=== PATIENT | male | born 1935 | race Caucasian/White ===

== ENCOUNTER 2016-08-12 13:50 | Day surgery (SDC) | payer MEDICARE, OTHER ==
[~2016-08-12 13:50] MED LIST: Lactated Ringers 1,000 ML IV SCH; Lidocaine 1%/Sod Bicarbonate in NS 8.4% 1 ML Syringe IV PRN; Sodium Chloride 0.9% 10 ML Syringe FLUSH PRN
[2016-08-12] MEDS ORDERED: Propofol 200 MG/20 ML SDV ONE ×2 (14:16→15:35)
[2016-08-12] MEDS ORDERED: Lidocaine 1% 2 ML SDV ONE (14:17)
[2016-08-12] MEDS ORDERED: fentaNYL 250 MCG/5 ML SDV ONE (14:18)
--- NOTE | 2016-08-12 14:30 | PCM.PREANE ---
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 Respiratory: Reports: no symptoms Cardiovascular: Reports: no symptoms GI: Reports: no symptoms Other: Reports: none - PHYSICAL ASSESSMENT HR: 99 O2 Sat by Pulse Oximetry: 96 RR: 18 BP: 144/84 Temp: 98.0 C Height: 1.75 m Weight: 80.739 kg ASA Class: 2 Mental Status: alert & oriented x3 - ALLERGIES Allergies/Adverse Reactions: Allergies Allergy/AdvReac Type Severity Reaction Status Date / Time No Known Allergies Allergy Verified 06/10/15 16:37 PreAnesthesia Questionnaire HEENT History: Reports: Hard of hearing, Impaired vision Cardiovascular History: Reports: Hypertension Gastrointestinal History: Reports: GERD - SUBSTANCE USE Smoking Status *Q: Former Smoker Tobacco Use Within Last Twelve Months: No Days Per Week of Alcohol Use: 2 Number of Drinks Per Day: 1 Total Drinks Per Week: 2 Recreational Drug Use History: No - HOME MEDS Home Medications: Home Meds Aspirin [Ecotrin] 81 mg PO DAILY 08/12/16 [History] Atenolol 50 mg PO DAILY 08/12/16 [History] LORazepam 1 mg PO DAILY 08/12/16 [History] Lisinopril 10 mg PO DAILY 08/12/16 [History] Meclizine [Antivert] 12.5 mg PO DAILY 08/12/16 [History] Multivit-Min/FA/Lycopen/Lutein [Centrum Silver Men Tablet] 1 tab PO DAILY [History] Omeprazole 20 mg PO DAILY 08/12/16 [History] - CURRENT (IN HOUSE) MEDS Current Meds: Current Medications Lactated Ringer's (Ringers, Lactated) 1,000 mls @ 125 mls/hr IV ASDIRECTED DARYL Stop: 08/12/16 23:00 Lidocaine/Sodium Bicarbonate (Buffered Lidocaine 1% In Ns 8.4%) 0.25 ml IV ONETIME PRN PRN Reason: Prior to IV Start Stop: 08/12/16 18:00 Sodium Chloride (Saline Flush) 10 ml FLUSH ASDIRECTED PRN PRN Reason: Keep Vein Open Stop: 08/12/16 18:00 Discontinued Medications Bupivacaine HCl (Marcaine 0.5%) Confirm Administered Dose 30 ml .ROUTE .STK-MED ONE Stop: 08/12/16 13:44 Lidocaine HCl (Xylocaine-Mpf 1%) Confirm Administered Dose 30 ml .ROUTE .STK- MED ONE Stop: 08/12/16 13:44
--- NOTE | 2016-08-12 14:40 | PCM.PREANE ---
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 Respiratory: Reports: no symptoms Cardiovascular: Reports: no symptoms GI: Reports: no symptoms Other: Reports: none - PHYSICAL ASSESSMENT HR: 99 O2 Sat by Pulse Oximetry: 96 RR: 18 BP: 144/84 Temp: 98.0 C Vital Signs: Last Vital Signs Temp 98.0 C H 08/12/16 14:30 Pulse 99 08/12/16 14:30 Resp 18 08/12/16 14:30 BP 144/84 H 08/12/16 14:30 Pulse Ox 96 08/12/16 14:30 Height: 1.75 m Weight: 80.739 kg ASA Class: 2 Mental Status: alert & oriented x3 Airway Class: Mallampati = 2 Dentition: Reports: normal dentition Thyro-Mental Finger Breadths: 3 Mouth Opening Finger Breadths: 3 ROM/Head Extension: full Respiratory Status: lungs clear to auscultation bilaterally Cardiovascular Status: regular rate & rhythm, normal S1, S2, no murmur, blood pressure WNL - ALLERGIES Allergies/Adverse Reactions: Allergies Allergy/AdvReac Type Severity Reaction Status Date / Time No Known Allergies Allergy Verified 06/10/15 16:37 - ANESTHESIA PLAN Preop Beta Leigh: No Beta-Leigh Last Dose Date: 08/11/16 Beta-Leigh Last Dose Time: 20:15 Anesthesia Type Planned: MAC - ACKNOWLEDGEMENTS Pt an appropriate candidate for the planned anesthesia: Yes Alternatives and risks of anesthesia discussed w pt/guardian: Yes Pt/Guardian understands and agree with anesthesia plan: Yes PreAnesthesia Questionnaire HEENT History: Reports: Hard of hearing, Impaired vision Cardiovascular History: Reports: Hypertension Respiratory History: Reports: None Gastrointestinal History: Reports: GERD Genitourinary History: Reports: Other (see below) (hx prostate CA) Musculoskeletal History: Reports: None Neurological History: Reports: Vertigo Psychiatric History: Reports: None Endocrine/Metabolic History: Reports: None Hematologic History: Reports: None Immunologic History: Reports: None Oncologic (Cancer) History: Reports: Prostate - Past Surgical History GI Surgical History: Reports: Colonoscopy, Hernia, inguinal Male Surgical History: Reports: Other (see below) (prostate) Endocrine Surgical History: Reports: None Neurological Surgical History: Reports: None Musculoskeletal Surgical History: Reports: None, Other (see below) (hand surgery without comp) Oncologic Surgical History: Reports: None Dermatological Surgical History: Reports: None - SUBSTANCE USE Smoking Status *Q: Former Smoker Tobacco Use Within Last Twelve Months: No Days Per Week of Alcohol Use: 2 Number of Drinks Per Day: 1 Total Drinks Per Week: 2 Recreational Drug Use History: No - HOME MEDS Home Medications: Home Meds Aspirin [Ecotrin] 81 mg PO DAILY 08/12/16 [History] Atenolol 50 mg PO DAILY 08/12/16 [History] LORazepam 1 mg PO DAILY 08/12/16 [History] Lisinopril 10 mg PO DAILY 08/12/16 [History] Meclizine [Antivert] 12.5 mg PO DAILY 08/12/16 [History] Multivit-Min/FA/Lycopen/Lutein [Centrum Silver Men Tablet] 1 tab PO DAILY [History] Omeprazole 20 mg PO DAILY 08/12/16 [History] - CURRENT (IN HOUSE) MEDS Current Meds: Current Medications Lactated Ringer's (Ringers, Lactated) 1,000 mls @ 125 mls/hr IV ASDIRECTED DARYL Stop: 08/12/16 23:00 Lidocaine/Sodium Bicarbonate (Buffered Lidocaine 1% In Ns 8.4%) 0.25 ml IV ONETIME PRN PRN Reason: Prior to IV Start Stop: 08/12/16 18:00 Sodium Chloride (Saline Flush) 10 ml FLUSH ASDIRECTED PRN PRN Reason: Keep Vein Open Stop: 08/12/16 18:00 Discontinued Medications Bupivacaine HCl (Marcaine 0.5%) Confirm Administered Dose 30 ml .ROUTE .STK-MED ONE Stop: 08/12/16 13:44 Lidocaine HCl (Xylocaine-Mpf 1%) Confirm Administered Dose 30 ml .ROUTE .STK- MED ONE Stop: 08/12/16 13:44
[2016-08-12] MEDS ORDERED: ceFAZolin 1 GM Vial ONE ×2 (15:05)
[2016-08-12] MEDS: Bupivacaine 0.5% 30 ML SDV ONE ×2 (15:15→15:31)
[2016-08-12] MEDS: Lidocaine 1% 30 ML SDV ONE ×2 (15:15→15:31)
[2016-08-12] MEDS ORDERED: Midazolam 1 MG/ML 2 ML SDV ONE (15:19)
[2016-08-12] MEDS ORDERED: Phenylephrine/Normal Saline 100 MCG/ML 10 ML Syringe ONE (16:02)
[2016-08-12] MEDS ORDERED: Ondansetron 4 MG/2 ML SDV ONE (16:03)
--- NOTE | 2016-08-12 16:34 | PCM.OPNOTE ---
- General Post-Op/Procedure Note Date of Surgery/Procedure: 08/12/16 Operative Procedure(s): rt inguinal hernia repair with mesh Pre Op Diagnosis: incacerated rt inguinal hernia Post-Op Diagnosis: Same Anesthesia Technique: MAC Primary Surgeon: Ihsan Garcia Complications: None Condition: Good
--- NOTE | 2016-08-12 16:34 | PCM48HPAN ---
Post Anesthesia Note - EVALUATION WITHIN 48HRS OF ANESTHETIC Vital Signs in Normal Range: Yes Patient Participated in Evaluation: Yes Respiratory Function Stable: Yes Airway Patent: Yes Cardiovascular Function Stable: Yes Hydration Status Stable: Yes Pain Control Satisfactory: Yes Nausea and Vomiting Control Satisfactory: Yes Mental Status Recovered: Yes
[2016-08-12 17:24] VITALS: BP 127/77
--- NOTE | 2016-08-15 08:22 | OR ---
DATE OF OPERATION: 08/12/2016 SURGEON: Ihsan Garcia MD PREOPERATIVE DIAGNOSIS: Incarcerated right inguinal hernia. POSTOPERATIVE DIAGNOSIS: Incarcerated right inguinal hernia. OPERATION PERFORMED: Repair with mesh done under IV sedation. FINDINGS: A large incarcerated direct inguinal hernia with loss of the floor of the inguinal canal and increased diameter of the internal ring. DESCRIPTION OF PROCEDURE: The patient was taken to the operating room, placed in a supine position, connected to monitoring equipment, given IV sedation. Antibiotics were given. The inguinal region was clipped and prepped with DuraPrep, draped off in a sterile fashion. A 0.5% Marcaine/Xylocaine infiltrated in the skin, deeper tissues as needed. Transverse incision was made, carried down by sharp dissection to the external oblique fascia which was opened from internal to external ring after flooding the undersurface with anesthetic. The direct inguinal hernia was reduced and the sac was then dissected from the under surface of the cord and the opening exposed. Cord lipoma was taken from the internal ring and the floor was then reconstituted with an interrupted 2-0 Ethibond suture, suturing the shelving edge of the inguinal ligament to the internal oblique fascia. This narrowed the internal ring to admit the index finger. This was followed by a mesh that was placed on the pubic tubercle and sutured to the shelving edge of the inguinal ligament with a running 2-0 Vicryl suture. Tails were then wrapped around the internal ring and the medial side of the mesh was then sutured to the internal oblique fascia with interrupted 2-0 Vicryl suture. The tails were crossed and secured in place with a 2-0 Vicryl suture so as to make another internal ring which admit the index finger. The cord was allowed to fall back onto this repair and the external oblique fascia reconstituted with a running 3-0 Vicryl suture. Julien's fascia brought together with interrupted 3-0 Vicryl suture, and the skin with a subdermal 4-0 Dexon suture. Steri-Strips and sterile dressing placed. The patient tolerated the procedure, sent to recovery room in a stable condition. ANESTHESIA: ESTIMATED BLOOD LOSS: MMODAL /[id number]
== END 2016-08-12 17:16 | disposition home or self-care (01) ==
LOC: JD.SDS 13:50
PROVIDERS: ATTEND Surgery
PROC: 0YU50JZ Supplement Right Inguinal Region with Synthetic Substitute, Open Approach (ICD-10-PCS; principal; 2016-08-12)
DX: K40.30 Unilateral inguinal hernia, with obstruction, without gangrene, not specified as recurrent (principal); E78.5 Hyperlipidemia, unspecified; I10 Essential (primary) hypertension; K21.9 Gastro-esophageal reflux disease without esophagitis; Z85.46 Personal history of malignant neoplasm of prostate; Z98.890 Other specified postprocedural states; Z79.82 Long term (current) use of aspirin; Z79.899 Other long term (current) drug therapy; Z87.891 Personal history of nicotine dependence
CPT/HCPCS: 49507; C1781; J0690; J2250; J2405; J7120; 00830; 87641; J2704; J3010

== ENCOUNTER 2023-09-20 20:31 | Emergency (ER) | payer MEDICARE, OTHER ==
[2023-09-20 21:27] LABS: BASOPHILS PERCENT AUTO 0.5 % (0.0-1.0); EOSINOPHILS ABSOLUTE AUTO 0.2 K/mm3 (0.0-0.4); EOSINOPHILS PERCENT AUTO 2.1 % (0.0-6.0); HEMATOCRIT 45.4 % (42.0-52.0); HEMOGLOBIN 14.5 gm/dl (14.0-18.0); IMMATURE GRAN ABSOLUTE AUTO 0.01 K/mm3 (0.00-0.05); IMMATURE GRAN PERCENT AUTO 0.1 % (0.0-0.4); LYMPHOCYTES ABSOLUTE AUTO 1.2 K/mm3 (1.0-4.8); LYMPHOCYTES PERCENT AUTO 14.5 % (24.0-44.0); MEAN CORPUSCULAR HGB CONC 31.9 g/dl (32.0-36.0); MEAN CORPUSCULAR VOLUME 97.2 fl (83.0-99.0); MONOCYTES ABSOLUTE AUTO 0.7 K/mm3 (0.0-0.8); MONOCYTES PERCENT AUTO 8.8 % (0.0-8.0); NEUTROPHILS ABSOLUTE AUTO 5.9 K/mm3 (1.8-7.7); PLATELET COUNT,PLT 164 K/mm3 (150-400); RED BLOOD CELL COUNT 4.67 M/mm3 (4.52-5.90); WHITE BLOOD CELL COUNT,WBC 7.95 K/mm3 (3.9-11.3)
[2023-09-20 21:56] LABS: A/G RATIO 1.1 (1-2); ALBUMIN 3.2 g/dl (3.4-5.0); BILIRUBIN TOTAL 0.5 mg/dL (0.2-1.0); BUN/CREATININE RATIO 14.6 (14-18); CALCIUM 9.2 mg/dL (8.5-10.1); CREATININE 1.3 mg/dL (0.7-1.3); EST CRCL DRUG DOSING (CG) 37.27 mL/min; PROTEIN TOTAL,TP 6.2 g/dl (6.4-8.2); TSH 1.714 uIU/mL (0.358-3.74)
[2023-09-21] MEDS: Furosemide 20 MG/2 ML VIAL IVPUSH ONE (00:05)
[2023-09-21 01:07] LABS: APPEARANCE,URINE CLEAR (Clear); BILIRUBIN,URINE NEGATIVE (Negative); COLOR,URINE YELLOW (Yellow); GLUCOSE,URINE NEGATIVE (Negative); KETONES,URINE NEGATIVE (Negative); LEUKOCYTE ESTERASE,URINE NEGATIVE (Negative); NITRITE,URINE NEGATIVE (Negative); OCCULT BLOOD,URINE NEGATIVE (Negative); PROTEIN,URINE NEGATIVE (Negative); UROBILINOGEN,URINE 0.2 (0.2-1.0)
[2023-09-21 02:14] VITALS: BP 108/84; PULSE 85
== END 2023-09-21 01:40 | disposition home or self-care (01) ==
LOC: JD.ED 20:31
DX: F03.918 Unspecified dementia, unspecified severity, with other behavioral disturbance (principal); J01.00 Acute maxillary sinusitis, unspecified; I11.0 Hypertensive heart disease with heart failure; I50.9 Heart failure, unspecified; Z79.82 Long term (current) use of aspirin; Z79.84 Long term (current) use of oral hypoglycemic drugs; Z79.899 Other long term (current) drug therapy
CPT/HCPCS: 36415; 70450; 71045; 80053; 81003; 83690; 83880; 84443; 84484; 85025; 96374; 99284; J1940

== ENCOUNTER 2023-12-16 02:50 | Emergency (ER) | payer MEDICARE, OTHER ==
[2023-12-16] MEDS: Diphtheria,Pertussis(Acell),Tetanus Vaccine 0.5 ML Syringe IM ONE (03:34)
[2023-12-16] MEDS: Acetaminophen 325 MG Tab PO ONE (03:35)
[2023-12-16 05:01] VITALS: BP 118/85; PULSE 85
== END 2023-12-16 05:03 | disposition home or self-care (01) ==
LOC: JD.ED 02:50
DX: S51.012A Laceration without foreign body of left elbow, initial encounter (principal); I10 Essential (primary) hypertension; Z23 Encounter for immunization; Z79.899 Other long term (current) drug therapy; Z79.82 Long term (current) use of aspirin; W18.30XA Fall on same level, unspecified, initial encounter
CPT/HCPCS: 73090; 90471; 90715; 99283; A9270